=== PATIENT | female | born 1940 | race Caucasian/White ===

== ENCOUNTER → 2017-05-02 | Outpatient (CLI) | payer OTHER | LOC: FIMAGING 09:01 | PROVIDERS: ATTEND Internal Medicine | DX: Z12.31 Encounter for screening mammogram for malignant neoplasm of breast (principal) | CPT/HCPCS: G0202 ==

== ENCOUNTER → 2017-05-23 | Outpatient (CLI) | payer OTHER | LOC: FIMAGING 10:07 | PROVIDERS: ATTEND Internal Medicine | DX: R92.8 Other abnormal and inconclusive findings on diagnostic imaging of breast (principal) ==

== ENCOUNTER → 2017-05-31 | Outpatient (CLI) | payer OTHER ==
[~2017-05-31] MED LIST: GADOBUTROL 10 ML VIAL IVP ONE
== END ==
LOC: FIMAGING 13:09
PROVIDERS: ATTEND Internal Medicine
DX: Z12.39 Encounter for other screening for malignant neoplasm of breast (principal); N64.59 Other signs and symptoms in breast
CPT/HCPCS: 0159T; A9585; C8908

== ENCOUNTER → 2017-06-19 | Outpatient (CLI) | payer OTHER | LOC: BHFA 10:00 | PROVIDERS: ATTEND Internal Medicine Cardiovascular Disease | DX: I48.91 Unspecified atrial fibrillation (principal) ==

== ENCOUNTER → 2017-11-15 | Outpatient (CLI) | payer OTHER | LOC: FIMAGING 10:05 | PROVIDERS: ATTEND Internal Medicine | DX: N63.13 Unspecified lump in the right breast, lower outer quadrant (principal) ==

== ENCOUNTER 2018-04-27 10:49 | Observation (INO) | payer OTHER ==
--- NOTE | 2018-04-27 11:13 | CPEKG ---
Test Reason : OPEN Blood Pressure : / mmHG Vent. Rate : 065 BPM Atrial Rate : 068 BPM P-R Int : 049 ms QRS Dur : 083 ms QT Int : 383 ms P-R-T Axes : 000 066 169 degrees QTc Int : 399 ms Atrial fibrillation LVH with secondary repolarization abnormality Confirmed by Ricco Wells ([id number]) on 04/27/2018 11:12:59 AM Referred By: Confirmed By:Ricco Wells
--- NOTE | 2018-04-27 11:15 | EDPHY ---
H & P Time Seen by Provider: 04/27/18 10:58 HPI/ROS: Chief complaint. Syncope HPI. Patient is a 77-year-old female history atrial fibrillation on Xarelto. She was riding in the car with her this morning and developed tightness in her chest and some nausea and diaphoresis. She then became unresponsive for 10-15 seconds. She had no sense that she felt like she could pass out. She has had previous syncope about 3 years ago and broke her ankle. She subsequently had pulmonary embolus. She has had no fever or cough. She continues to be nauseated but does not have any chest tightness. She tells me she has never had chest tightness like this before. No unusual leg pain or swelling. Nausea but no vomiting and no abdominal pain ROS 10 systems were reviewed and negative with the exception of the elements mentioned in the history of present illness Past Medical/Surgical History: Atrial fibrillation Meniere's disease, hypertension, hyperglycemia, pulmonary embolus Social History: , nonsmoker, no alcohol Smoking Status: Never smoked Physical Exam: General Appearance: Alert well-developed female mild distress vital signs significant for blood pressure 181/111 Eyes: Pupils equal and round no pallor or injection. ENT, Mouth: Mucous membranes are moist. Respiratory: There are no retractions, lungs are clear to auscultation. Cardiovascular: Irregularly irregular rate and rhythm Gastrointestinal: Abdomen is soft and nontender, no masses, bowel sounds normal. Neurological: Awake and alert, sensory and motor exams grossly normal. Skin: Warm and dry, no rashes. Musculoskeletal: Neck is supple nontender. Extremities symmetrical, full range of motion. Psychiatric: Patient is oriented X 3, there is no agitation. Constitutional: Initial Vital Signs Temperature (C) 36.6 C 04/27/18 10:52 Heart Rate 70 04/27/18 10:52 Respiratory Rate 18 04/27/18 10:52 Blood Pressure 181/111 H 04/27/18 10:52 O2 Sat (%) 95 04/27/18 10:52 O2 Delivery Mode Room Air Allergies/Adverse Reactions: No Known Allergies Allergy (Verified 04/27/18 10:50) Home Medications: Medication Instructions Recorded Ascorbic Acid [Vitamin C 500 mg 1,000 mg PO DAILY 11/29/15 (*)] Carboxymethylcellulose 1% [Refresh 1 drop EACHEYE BID PRN 11/29/15 Celluvisc (*)] Cholecalciferol Vit D3 [Vitamin D3 2,000 units PO DAILY 11/29/15 2000 units] Levothyroxine [Synthroid 75 mcg 75 mcg PO DAILY06 11/29/15 (*)] Magnesium Oxide [Magnesium Oxide 500 mg PO DAILY 11/29/15 500 mg] Multivitamins [Multivitamin (*)] 1 each PO DAILY 11/29/15 Nebivolol HCl [Bystolic 5 mg (*)] 5 mg PO HS 11/29/15 Katy-3 Fatty Acids [Fish Oil 1000 1,000 mg PO DAILY 11/29/15 mg (*)] Sennosides/Docusate Sodium 1 each PO DAILY 11/29/15 [Senna-Docusate Sodium Tablet] Rivaroxaban [Xarelto 15mg (*)] 15 mg PO BIDMEAL #0 tab 12/02/15 Medical Decision Making - Diagnostics EKG Interpretation: EKG interpreted by me shows atrial fibrillation. Normal axis. QRS is normal. There is no significant ST elevation. There is lateral ST depression. Ventricular response is 65 Imaging Results: Imaging Impressions Chest X-Ray 04/27/18 11:26 Impression: Mild congestive heart failure. Findings and recommendations discussed with Emergency Department physician, Dr. Ricco Wells at 1202 hours on April 27, 2018. Final report concurs with initial preliminary interpretation. Chest x-ray interpreted by me and discussed with Radiology shows mild CHF. Tortuous aorta but no evidence for aneurysm Procedures: IV normal saline, monitor. Zofran for nausea ED Course/Re-evaluation: Re-evaluation patient is stable. LEs nausea after the Zofran. Patient, her , and I discussed imaging lab an EKG findings. We discussed treatment plan including recommendation for admission. They expressed understanding and agreement I consulted discussed the case with Dr. Peña who agrees to the admission and will see the patient shortly. Differential Diagnosis: Syncope in a patient without prodrome who has atrial fibrillation. New evidence of congestive heart failure. Suspicion for acute coronary syndrome as the patient did have some chest discomfort, diaphoresis, nausea. No evidence for pulmonary embolus - Data Points Laboratory Results: Laboratory Results 04/27/18 11:00 04/27/18 11:00 04/27/18 04/27/18 04/27/18 11:38 11:00 11:00 WBC RBC Hgb Hct MCV MCH MCHC RDW Plt Count MPV Neut % (Auto) Lymph % (Auto) Grady % (Auto) Eos % (Auto) Baso % (Auto) Nucleat RBC Rel Count Absolute Neuts (auto) Absolute Lymphs (auto) Absolute Monos (auto) Absolute Eos (auto) Absolute Basos (auto) Absolute Nucleated RBC Immature Gran % Immature Gran # PT 15.9 SEC H SEC (12.0-15.0) INR 1.25 H (0.83-1.16) APTT 33.5 SEC SEC (23.0-38.0) D-Dimer < 0.27 ug/mLFEU ug/mLFEU (0.00-0.50) Sodium 136 mEq/L mEq/L (135-145) Potassium 4.8 mEq/L mEq/L (3.3-5.0) Chloride 101 mEq/L mEq/L (97-110) Carbon Dioxide 24 mEq/l mEq/l (22-31) Anion Gap 11 mEq/L mEq/L (8-16) BUN 26 mg/dL H mg/dL (7-23) Creatinine 0.8 mg/dL mg/dL (0.6-1.0) Estimated GFR > 60 Glucose 94 mg/dL mg/dL (70-100) Calcium 10.7 mg/dL H mg/dL (8.5-10.4) Phosphorus 3.2 mg/dL mg/dL (2.5-4.5) POC Troponin I 0.04 ng/mL ng/mL (0.00-0.08) NT-Pro-B Natriuret Pep 3390 pg/mL H pg/mL (0-450) 04/27/18 11:00 WBC 7.56 10^3/uL 10^3/uL (3.80-9.50) RBC 4.95 10^6/uL 10^6/uL (4.18-5.33) Hgb 15.5 g/dL g/dL (12.6-16.3) Hct 46.3 % % (38.0-47.0) MCV 93.5 fL fL (81.5-99.8) MCH 31.3 pg pg (27.9-34.1) MCHC 33.5 g/dL g/dL (32.4-36.7) RDW 13.9 % % (11.5-15.2) Plt Count 244 10^3/uL 10^3/uL (150-400) MPV 10.0 fL fL (8.7-11.7) Neut % (Auto) 52.0 % % (39.3-74.2) Lymph % (Auto) 37.3 % % (15.0-45.0) Grady % (Auto) 9.4 % % (4.5-13.0) Eos % (Auto) 0.4 % L % (0.6-7.6) Baso % (Auto) 0.5 % % (0.3-1.7) Nucleat RBC Rel Count 0.0 % % (0.0-0.2) Absolute Neuts (auto) 3.93 10^3/uL 10^3/uL (1.70-6.50) Absolute Lymphs (auto) 2.82 10^3/uL 10^3/uL (1.00-3.00) Absolute Monos (auto) 0.71 10^3/uL 10^3/uL (0.30-0.80) Absolute Eos (auto) 0.03 10^3/uL 10^3/uL (0.03-0.40) Absolute Basos (auto) 0.04 10^3/uL 10^3/uL (0.02-0.10) Absolute Nucleated RBC 0.00 10^3/uL 10^3/uL (0-0.01) Immature Gran % 0.4 % % (0.0-1.1) Immature Gran # 0.03 10^3/uL 10^3/uL (0.00-0.10) PT INR APTT D-Dimer Sodium Potassium Chloride Carbon Dioxide Anion Gap BUN Creatinine Estimated GFR Glucose Calcium Phosphorus POC Troponin I NT-Pro-B Natriuret Pep Medications Given: Discontinued Medications Sodium Chloride (Ns) 500 mls @ 0 mls/hr IV EDNOW ONE; Wide Open PRN Reason: Protocol Stop: 04/27/18 11:27 Last Admin: 04/27/18 11:40 Dose: 500 mls Ondansetron HCl (Zofran) 4 mg IVP EDNOW ONE Stop: 04/27/18 11:28 Last Admin: 04/27/18 11:40 Dose: 4 mg Point of Care Test Results: Chemistry 04/27/18 11:38 POC Troponin I 0.04 ng/mL ng/mL (0.00-0.08) Departure - Departure Disposition: [facility] Inpatient Acute Clinical Impression: Atrial fibrillation Qualifiers: Atrial fibrillation type: unspecified Qualified Code(s): I48.91 - Unspecified atrial fibrillation Congestive heart failure Qualifiers: Heart failure type: systolic Heart failure chronicity: acute Qualified Code(s) : I50.21 - Acute systolic (congestive) heart failure Syncope Qualifiers: Syncope type: unspecified Qualified Code(s): R55 - Syncope and collapse Condition: Fair
[2018-04-27] MEDS ORDERED: NS 500 ML IV ONE (11:26)
[2018-04-27] MEDS ORDERED: ONDANSETRON 4 MG/2 ML VIAL IVP ONE (11:27)
[2018-04-27 11:35] LABS: PLATELET COUNT 244 10^3/uL (150-400)
[2018-04-27 11:47] LABS: INR 1.25 (0.83-1.16); PROTIME(PATIENT) 15.9 SEC (12.0-15.0)
[2018-04-27] MEDS ORDERED: ONDANSETRON 4 MG/2 ML VIAL IVP PRN (12:30)
[2018-04-27] MEDS ORDERED: ONDANSETRON DISINTEGRATING 4 MG TAB PO PRN (12:30)
[2018-04-27] MEDS ORDERED: ACETAMINOPHEN 325 MG TAB PO PRN (12:30)
[2018-04-27] MEDS ORDERED: FUROSEMIDE 20 MG/2 ML VIAL IVP ONE (12:35)
[2018-04-27] MEDS ORDERED: CARBOXYMETHYLCELLULOSE 1% 0.4 ML DROPERETTE EACHEYE PRN (14:03)
[2018-04-27] MEDS ORDERED: traZODone 50 MG TAB PO PRN (14:03)
--- NOTE | 2018-04-27 14:34 | SOAPPROG ---
SOAP Progress Note Assessment/Plan: Assessment: 77 yo delightful female comes in today after spouse was driving w/ her and she became unresponsive for 10-15 sec, sweaty, nauseated, no cp. She has a h/o intermittent a fib on Bystolic and Xarelto, puly htn, dvt/PE after ankle fx, hypothyroidism, OA, reports she had a recent heart scan which was minimally positive. In the ER her labs were found to show +BNP of 3400, no prior data points for this, cxr w/ minimal evidence of CHF, no infiltrates/effusion, ekg w / a fib, trop x 1 neg, d dimer ok (and on anticoag). Pt admitted for further w/ u of syncopal episode w/ differential to include arrhythmia induced, acs, unlikely postural/orthostatic as she was riding in car, not likely infectious as she has been in usual state of health w/o any recent illnesses, no h/o sz disorder/neuro etiology. -Admit to tele, serial trop, echo, cont Xarelto, will consult cardiology as this is now a second event (first 3 years ago) - seems to be going in and out of afib and she is not aware she is in it currently - ? cardioversion vs rhythm med consideration, assess what she does on tele, ? longer term eval of rhythm vs ? pacer, will consult cardiology and call Dr Felicia Louis. -Hypothryoid - will check TSH and make sure not hyperthyroid and contributing -HTN - bp elev currently - usually well controlled on Bystolic 5 mg qhs (and rate control) - spoke w/ Dr Louis - will hold bb to better assess rhythm/ sinus node/pause/rate - will place on norvasc, has h/o cough on gisela i. -h/o vertigo/possible Meniere's/tinnitus - stable, undergoing outpt w/u -[facility] - wears cpap nightly -h/o DVT/PE after ankle fx - on Xarelto see above. -dvt proph- Xarelto Plan: 04/27/18 14:13 Subjective: doing better, was scary, now w/ appetite and no further nausea Objective: Vital Signs Temp Pulse Resp BP Pulse Ox 36.6 C 64 14 174/110 H 93 04/27/18 10:52 04/27/18 12:43 04/27/18 12:43 04/27/18 12:43 04/27/18 12:43 PT 15.9 SEC (12.0-15.0) H 04/27/18 11:00 INR 1.25 (0.83-1.16) H 04/27/18 11:00 GEN: pleasant female w/ spouse and dtr and one son in room HEENT: perr, eomi Neck: soft, supple Chest: cta b CV: irreg irreg Abd: soft nt nd nl bs Ext : no edema Neuro: alert and oriented x 4 Psych: a little stressed from incident but better ICD10 Worksheet Patient Problems: Problems Problem Status Onset Pulmonary embolism and infarction Acute Atrial fibrillation and flutter Acute Atrial fibrillation Acute Congestive heart failure Acute Syncope Acute
--- NOTE | 2018-04-27 15:49 | GHP ---
DATE OF ADMISSION: 04/27/2018 CHIEF COMPLAINT: Syncope. HPI: Patient is a delightful 77-year-old female with a history of intermittent atrial fibrillation, hypertension, history of DVT and PE, who was driving with her spouse today as a passenger, when he no ticed that she became unresponsive for about 10-15 seconds. When she started responding again, she w as a little bit pale, diaphoretic and nauseated. Denies any chest pain at that time. She started fe elielizabeth better and he called and was directed to go to the ER for further workup. She had 1 event dory lar to this about 3 years ago in a situation where she had taken Benadryl and was dehydrated and trip ped unfortunately resulting in a fractured ankle with a DVT and PE at that time. She reports that miguel santos has been in her usual state of health. No recent illnesses, nausea, vomiting, diarrhea, fevers, ch ills. Nothing abnormal. She had consumed her regular medications, had fluids and food this morning, was feeling fine until this occurred in the car. In the ER, she was found, as far as blood work, to have an elevated BNP of around 3400 with no prior data points for comparison. A chest x-ray done, which showed minimal evidence of CHF with no infiltr ates or effusion. She had an EKG done which showed atrial fibrillation. She had initial troponin ne gative. D-dimer okay. Rest of her labs normal. No electrolyte abnormalities. She was feeling much better, although anxious from the event. She has no history of seizure disorder, is not started on any new medications or anything out of the ordinary except for stopping her sildenafil fairly recentl y with a question of was it contributing to muscle aches, and she has not noticed any difference from that, and she was being treated for pulmonary hypertension with this medication with her last echo i n May of 2017, and also she did have a Holter monitor done at that time as well, trying to asses s her atrial fibrillation. PAST MEDICAL HISTORY: Obstructive sleep apnea for which she wears CPAP every night, hypertension con trolled with Bystolic 5 mg a day, vertigo, some hearing loss and possible Meniere's, hyperlipidemia, hypothyroidism, mitral valve prolapse, osteopenia, intermittent atrial fibrillation, osteoarthritis, history of PE and DVT. MEDICATIONS: Include Synthroid 75 mcg daily, fish oil 1000 daily, Bystolic 5 mg daily, although in 1 record, she had been up to 10 mg; Xarelto 20 mg daily, CoQ10 2 capsules daily, magnesium 500 mg 2 da mitch, Tylenol p.r.n., vitamin D 2000 once a day, and multivitamin once a day. SURGICAL HISTORY: Includes right ankle surgery in 2015, hospitalization in 2015 with ankle surgery a nd pulmonary embolus. SOCIAL HISTORY: She is , has 3 sons and 1 daughter. She is a nonsmoker. Has an occasional a lcohol beverage, but not very often. Has 1-2 cups of coffee per day. Exercise is somewhat limited d ue to her osteoarthritis. FAMILY HISTORY: Her dad young secondary to motor vehicle accident. Mom at 88 from a strok e and Alzheimer's. ALLERGIES: PINKY inhibitor for cough and Flexeril for drowsiness. REVIEW OF SYSTEMS: GENERAL: She is in her usual state of health. Denies any recent illnesses, reece ge in appetite, anything abnormal. HEENT: Hearing: Positive for some ongoing hearing loss and vert igo and tinnitus. Vision: She has been having some change in her vision, for which her ophthalmolog ist is trying to adjust her glasses. Oropharyngeal: Denies any sore throats or congestion. RESPIRA TORY: Denies any cough, shortness of breath, or wheezing. CARDIOVASCULAR: Intermittent palpitation s, which she seems she can feel when she is in atrial fibrillation. However, she cannot appreciate t hat she is in it currently. GI: Denies any nausea, vomiting, diarrhea, or constipation. MUSCULOSKE LETAL: Positive for some soreness of both legs and 1 knee, which she is being treated at [facility] and may consider a total knee replacement. EXTREMITIES: Denies any swelling to her lower legs or an kles. NEUROLOGIC: Denies any history of seizure disorders or memory loss or any other concerns. No weakness. PSYCHIATRIC: A little bit anxious from the event today, but denies any acute problematic mood issues. PHYSICAL EXAM: VITAL SIGNS: Blood pressure 174/110, heart rate 65, respiration rate 14. She is 93% to 95% on room air. Afebrile at 36.6. GENERAL: Pleasant female, alert and oriented x4. Spouse at bedside and daughter and 1 son present as well. HEAD: NC/NT. EYES: Pupils equal, round. EOMI. ENT: Mucous membranes moist. No erythema of oropharynx. NECK: Soft and supple. No thyromegaly ap preciated. RESPIRATORY: Clear to auscultation bilaterally. No wheezes, rhonchi. CARDIOVASCULAR: Irregularly irregular. GI: Abdomen soft, nontender, nondistended. Normal bowel sounds. NEUROLOGIC : She is alert and oriented x4. Denies any weakness. Sensorimotor exam is normal. Cranial nerves 2 through 12 grossly intact. MUSCULOSKELETAL: Has some decreased range of motion in 1 shoulder and 1 knee from osteoarthritis. SKIN: Warm and dry. No rashes. EXTREMITIES: No clubbing, cyanosis, o r edema. PSYCHIATRIC: Mild anxiety over the event, but no abnormalities otherwise. Alert and orien brianna and appropriate. Good eye contact. ASSESSMENT AND PLAN: A 77-year-old pleasant female with a 10-15 second syncopal event in the passeng er seat of a car this morning with no antecedent causal factors appreciated or noted. Has been in [facility] state of health. Does have intermittent atrial fibrillation. Has minimal coronary atheroscleros is on heart scan. Is on Xarelto with a history of atrial fibrillation and also history of deep vein thrombosis/pulmonary embolism in the ER with a mild elevation of her BNP, negative 1st troponin. EKG showing atrial fibrillation. Etiology and differential to include arrhythmia-induced syncopal event , acute coronary syndrome, possibly postural orthostatic, but less likely as she was riding in the [employer] and had intake of orals earlier in the day, not likely infectious as she has been in usual state of health. No history of seizure disorder, indication for neurologic etiology. PLAN: 1. Will be to admit her to telemetry. Follow serial troponins. I have ordered an echocardiogram. We will continue on Xarelto. At this point, we will also call Cardiology for input as this seems to be her 2nd event, with the first 3 years ago and she is not always aware when she goes in or out of a trial fibrillation. Question whether she could be considered for cardioversion versus alteration in rhythm medications versus possible pacer candidate versus longer-term evaluation of her rhythm. We w ill consult Cardiology, Dr. Felicia Louis, and per discussion with Dr. Louis, we will take her off Bystol to have a better assessment of her rhythm, what her sinus node activity is, and possible pauses co ntributing to the above. 2. Hypothyroidism. We will check TSH and make sure that she is appropriately controlled and hypothy roidism is not contributing to current situation. 3. History of hypertension. She is usually well controlled on Bystolic. Per discussion above, with wanting to see truly what she is doing on telemetry, we will hold the Bystolic and place her on Norv asc. Of note, she has a history of a cough to PINKY inhibitors. 4. History of vertigo, possible Meniere's and tinnitus, stable. She is undergoing further workup as an outpatient on this. This is not a new event. 5. History of obstructive sleep apnea. She wears CPAP nightly with excellent compliance at home. 6. History of DVT/PE after ankle fracture with a syncopal episode prior like above. Continue on Xar elto. 7. DVT prophylaxis. Continue Xarelto. /[id number]/MODL
--- NOTE | 2018-04-27 16:55 | ECHO ---
[email or web address] [address] Main: [phone] Fax: Transthoracic Echocardiogram Name: BRYCE HERNDON MR#: [id number] Study Date: 04/27/2018 Study Time: 03:15 PM Date of : 1940 Age: 77 year(s) Height: 177.8 cm (70 in.) Weight: 73.48 kg (162 lb.) BSA: 1.91 m2 Gender: Female Examination: Echo Indication: a fib, Cardiac: syncope, h/o puly htn, new elev in BNP Image Quality: Adequate Contrast: Requested by: Danae Peña BP: 154 mmHg/103 mmHg Heart Rate: Rhythm: Indication: a fib, Cardiac: syncope, h/o puly htn, new elev in BNP Procedure Staff Time Study Technologist: Echo Rahman [facility] Reading Physician: Felicia Louis MD Requesting Provider: Danae Peña Conclusions: Normal size left ventricle. Mild concentric LV hypertrophy. Normal global systolic LV function. The ejection fraction is estimated to be 55-60 %. No regional wall motion abnormality. Normal size right ventricle. Normal RV function. The left atrium is moderately dilated. The right atrium is severely dilated. Mild mitral valve regurgitation is present. The pulmonary artery pressure is moderately increased. Moderate to severe tricuspid valve regurgitation. Trivial pericardial effusion. Compared with 06/19/2017 TR may have progressed slightly. LVH now noted. Measurements: Chambers Valvular Assessment AV/MV Valvular Assessment TV/PV Normal Normal Normal Name Value Range Name Value Range Name Value Range Ao Roya (2D): 3.0 cm (1.4 cm-2.6 AV Vmax: 1.36 m/s (1 m/s-1.7 TR Vmax: 3.72 mm/s ( - ) cm) m/s) TR PGmax: 55 mmHg ( - ) IVSd (2D): 1.2 cm (0.6 cm-1.1 AV maxP mmHg ( - ) syst. PAP: 60 mmHg ( - ) cm) AV meanP mmHg ( - ) PV Vmax: 0.75 m/s (0.6 m/s-0.9 LVDd (2D): 4.2 cm (3.9 cm-5.3 DMITRY (VTI): 2.6 cm ( - ) m/s) cm) MV E Vmax: 0.85 m/s ( - ) PV PGmax: 2 mmHg ( - ) LVDs (2D): 2.7 cm (2.1 cm-4 MV A Vmax: 0.30 m/s ( - ) cm) MV E/A: 2.83 ( - ) LVPWd (2D): 1.1 cm ( - ) MV PHT: 0.051 s ( - ) LVOTd 2.0 cm 2.0 cm mm MVA (PHT): 4.3 s ( - ) Patient: BRYCE HERNDON Study Date: 04/27/2018 Page 1 of 2 03:15 PM LVEF (BP): 52 % (>=55 %) EF Range: 55-60 % RVDd(2D): 3.4 cm (1.9 cm-3.8 cmmm) Continued Measurements: Chambers Valvular Assessment AV/MV Valvular Assessment TV/PV Name Value Name Value Name Value LADs: 4.0 cm MV DecTime: 201 m/s CVP (est.): 5 mmHg LADs Lon.8 cm MV E' Septal: 0.07 m/s LA Area: 26.8 cm2 MV E/E' Septal: 11.60 LA Volume: 84 ml MV E/E' Lateral: 7.40 LA Volume Index: 44.0 ml/m2 RA Area: 24.8 cm2 Additional Vessels Name Value Ao Ascendin.9 cm Inferior Vena Cava: 1.2 cm Findings: Left Ventricle: Normal size left ventricle. Mild concentric LV hypertrophy. Normal global systolic LV function. The ejection fraction is estimated to be 55-60 %. No regional wall motion abnormality. Right Ventricle: Normal size right ventricle. Normal RV function. Left Atrium: The left atrium is moderately dilated. Right Atrium: The right atrium is severely dilated. Mitral Valve: Mild mitral annular calcification. Mild mitral valve regurgitation is present. Aortic Valve: The aortic valve is tri-leaflet. Trivial aortic valve regurgitation. No aortic valve stenosis is present. Tricuspid Valve: The pulmonary artery pressure is moderately increased. Right ventricular systolic pressure measures 60mmHg. Moderate to severe tricuspid valve regurgitation. Pulmonic Valve: The pulmonic valve is normal in appearance and function. Aorta: The aorta is normal. Normal size aortic root measuring 3.0 cm. Normal size ascending aorta measuring 2.9 cm. IVC: The IVC is normal sized. Pericardium: Trivial pericardial effusion. There is pericardial fat. Exam Comments: (No Signature Object) Patient: BRYCE HERNDON Study Date: 04/27/2018 Page 2 of 2 03:15 PM [id number]
--- NOTE | 2018-04-27 20:35 | GCON ---
CARDIOLOGY CONSULT DATE OF CONSULTATION: 04/27/2018 CHIEF COMPLAINT: Syncope. HISTORY OF PRESENT ILLNESS: We were asked by Dr. Peña to visit with the patient. The patient is a very pleasant 77-year-old female with a history of permanent atrial fibrillation, pulmonary embolis m in 2016, on chronic Xarelto therapy, systemic hypertension. Today, she was the passenger in a car, and her was driving. They were having a conversation. He looked over because she was not answering his question, and he reports that she was unresponsive . He thinks this lasted for about 10 seconds. She did not lose body position. No tongue biting or incontinence. The patient describes suddenly feeling chest pressure and nausea as well as diaphoresi s. She did not notice palpitations. When she came to, she still felt nauseated, but had resolution with mild chest pain. Upon my evaluation, she is chest pain free without nausea or diaphoresis. She reports normal oral intake over the past few days. No fevers or chills. No vomiting or diarrhea . No bleeding problems on Xarelto. We reviewed the fact that in 2008 she did have a syncopal episod e. This occurred while she was getting a manicure and letting her nails dry. She was seated. She h ad taken Benadryl and some other cold medication, and she lost consciousness briefly. Then again in 2016, she had gotten up quickly and walked across the kitchen. She turned and caught her foot under a chair, fainted and broke her ankle in the process. A month or so after this is when she developed her DVT/PE. REVIEW OF SYSTEMS: A full 10-point review of systems performed, is negative except that which is out lined in the history of present illness. ALLERGIES: PINKY inhibitor causes cough. PAST MEDICAL HISTORY: 1. Permanent atrial fibrillation. She has had 2 Holter monitors over the past year, both showing at rial fibrillation with controlled ventricular response. 2. Systemic hypertension. 3. Pulmonary hypertension. 4. History of pulmonary emboli. 5. Treated sleep apnea. 6. History of ankle fracture with surgical repair. 7. Hypothyroidism. 8. Meniere's. 9. Hyperlipidemia. 10. Osteopenia. 11. Osteoarthritis. 12. Valvular heart disease with mild mitral regurgitation and qazskydu-to-jfvafi tricuspid regurgita tion. OUTPATIENT MEDICATIONS: Bystolic 5 mg daily, Xarelto 20 mg daily, vitamin C, vitamin D3, Synthroid 7 5 mcg daily, magnesium oxide, multivitamin, fish oil, and trazodone. SOCIAL HISTORY: The patient is . Her is at the bedside. She drinks 1 to 1-1/2 glass es of wine nightly, which is her usual habit. No cigarettes. She is retired. FAMILY HISTORY: Not applicable to this current case. PHYSICAL EXAM: VITAL SIGNS: Blood pressure 154/103. It was 181/111 upon admission to the ER. She is not frankly orthostatic by vital signs, but does have a slightly lower blood pressure of 129/99 wi th standing compared to 148/92 with sitting and 138/71 with supine testing. Heart rate is in the 60s to 70s, 92% on room air. Respiratory rate is 14. GENERAL: Well-appearing older female in no acute distress. HEENT: Sclerae clear and free of jaundice. Mucous membranes are moist. CARDIOVASCULAR: Irregularly irregular rhythm. Soft holosystolic murmur at the left lower sternal border. No S3. LUNGS: Clear bilaterally without wheeze, rhonchi, or rales. ABDOMEN: Soft, nontender, nondistended . EXTREMITIES: Warm and well perfused without cyanosis, clubbing, or edema. NEURO: Alert and orie nted x3 without gross focal neurological deficits. Appropriate mood and affect. LABORATORY DATA: CBC is normal. D-dimer negative. INR 1.25, which likely reflects her Xarelto ther apy. Basic metabolic panel is normal except for slightly elevated BUN at 26, calcium is 10.7, magnes ium 2.1. Troponin negative x3. BNP 3390. This was elevated in 2016 as well in the setting of her P E at 3900. TSH is normal. EKG reviewed by me and compared to 2016 shows AFib with controlled ventricular response. LVH with as sociated repolarization abnormalities. Normal QT interval. Echocardiogram reviewed by me and compar ed to previous studies, normal LV size and systolic function. Mild concentric LVH. No ischemic wall motion abnormalities. RV is normal in size and systolic function. Moderate left atrial and severe right atrial dilation. Mild mitral regurgitation. Pulmonary artery pressure is elevated at 60 mmHg. Rkxgcvcc-el-qoacth tricuspid regurgitation. Compared with 05/2017, tricuspid regurgitation is slig htly worse. PA pressure is about the same. Chest x-ray reviewed by me: Mild congestive heart failure. Holter monitor x2 done in our office, both show AFib with controlled ventricular response, an average heart rate of 67 to 75. Only a single pause of 2.5 seconds. No significant ventricular arrhythmia. ASSESSMENT AND PLAN: A 77-year-old female with permanent atrial fibrillation, systemic hypertension, pulmonary hypertension, admitted with a brief episode of syncope that occurred while she was seated. She did have a brief prodrome of chest discomfort and nausea as well as diaphoresis. 1. Syncope: Symptoms sound somewhat consistent with vasovagal, but there was no clear vagal trigger , i.e., she did not need to use the restroom, she had not just eaten. Acute coronary syndrome trigge ring syncope seems unlikely given negative troponins and resolution of chest pain. EKG is stable wit hout new ischemic changes compared to 2017. Agree with cycling troponins and monitoring on telemetry . Other possibilities include a bradycardic or tachycardic arrhythmia. Her Bystolic will be held in the event that she is having slow ventricular response and atrial fibrillation or intermittent conve rsion to sinus rhythm with offset pause. I think the latter is less likely given the fact that she h as been in atrial fibrillation on serial past evaluations and her atria are quite enlarged, indicatin g that she likely has permanent atrial fibrillation. I do think that a [employer] confirm implantable monitor would be appropriate for long-term ambulatory monitoring. [facility] the next week or so. I would like her to hold her Xarelto for 1 day prior to thi s procedure. She will consider this. Also, I think it would be prudent for her to have an outpatien t Lexiscan nuclear stress test for further coronary risk stratification, although as mentioned, I do not think that her current symptom presentation is related to acute coronary syndrome. 2. Pulmonary hypertension: Pulmonary artery pressures in the 60s on serial echocardiograms. It is possible that she had a transient decline in her systemic hypertension, which would have caused synco pe in the setting of pulmonary hypertension. It is likely that her pulmonary hypertension is related to her past pulmonary embolism and her sleep apnea. She should remain well hydrated and avoid syste tiarra hypotension. She has been started on Norvasc for her hypertension, and her Bystolic has been hel d. 3. Hypertension: Med changes as detailed per #2. 4. History of pulmonary embolism: She is on Xarelto. D-dimer is negative here. Thank you for allowing us to participate in the patient's care. We will follow with you. /[id number]/MODL
[2018-04-27] MEDS ORDERED: RIVAROXABAN 20 MG TAB PO SCH (21:00)
[2018-04-27] MEDS ORDERED: NEBIVOLOL HCL 5 MG TAB PO SCH (21:00)
[2018-04-27] MEDS: FLUOROMETHOLONE 5 ML OPHT.BTL EACHEYE SCH (21:18)
[2018-04-28] MEDS ORDERED: LEVOTHYROXINE 75 MCG TAB PO SCH (06:00)
[2018-04-28 07:32] VITALS: BP 148/90
[2018-04-28] MEDS: FLUOROMETHOLONE 5 ML OPHT.BTL EACHEYE SCH (08:33)
[2018-04-28] MEDS ORDERED: ASCORBIC ACID 500 MG TAB PO SCH (09:00)
[2018-04-28] MEDS ORDERED: CHOLECALCIFEROL VIT D3 1,000 UNITS TAB PO SCH (09:00)
[2018-04-28] MEDS ORDERED: MAGNESIUM OXIDE 400 MG TAB PO SCH (09:00)
[2018-04-28] MEDS ORDERED: OMEGA-3 FATTY ACIDS 1,000 MG CAP PO SCH (09:00)
[2018-04-28] MEDS ORDERED: MULTIVITAMINS 1 EACH TAB PO SCH (09:00)
--- NOTE | 2018-04-28 09:27 | PDCARPN ---
Cardiology Progress Note Assessment/Plan: Assessment/plan: 77-year-old female with permanent atrial fibrillation, hypertension, pulmonary hypertension. History of pulmonary embolism and treated sleep apnea. Admitted on April 27 with a 10 sec episode of syncope that occurred while seated. Troponins negative. No recurrent syncope. No significant events on telemetry. Bystolic has been held and low-dose Norvasc has been started for her hypertension. 1. Syncope: Vasovagal versus arrhythmic versus hemodynamic in the setting of her pulmonary hypertension. Doubt acute coronary syndrome. No clear indication for pacemaker. Left ventricular ejection fraction is normal. Would continue to hold Bystolic and use Norvasc for her blood pressure. Recommend implant of a [employer] CONFIRM monitor that will provide long-term ambulatory rhythm data for 3 years. This can be scheduled as an outpatient. Also recommend outpatient Lexiscan nuclear stress test for further risk stratification. She should hold her Xarelto for 24 hr prior to the procedure. Remain well hydrated. 2. Atrial fibrillation: She is rate controlled here off of Bystolic. Follow as an outpatient. Monitor as detailed above. Continue Xarelto as her CHADS2 Vasc score is 4. 3. Hypertension: She was hypertensive on admission. This improved with low- dose Norvasc. Norvasc may need to be up titrated but will defer to the outpatient setting. 4. Pulmonary hypertension: Likely related to her history of pulmonary embolism and sleep apnea. This has been demonstrated on serial echoes. No evidence of right heart failure. 5. Valvular heart disease: Mild mitral regurgitation and moderate to severe tricuspid regurgitation. This should be followed on an annual basis. 6. Hypothyroidism: TSH this admission is normal. 7. Sleep apnea: She is compliant with CPAP. It would be important to demonstrate that she is completely treated as under treated sleep apnea could be contributing to her pulmonary hypertension. She appears stable for discharge from a cardiovascular standpoint with outpatient follow-up as detailed above. 04/28/18 09:50 Subjective: Feels well. No recurrent presyncope syncope. No chest pressure, nausea or diaphoresis. She had a normal bowel movement this morning. Reviewed/Discussed With: family Objective: Vital Signs (8 Hrs) Temp Pulse Resp BP Pulse Ox 04/28/18 07:29 35.8 C L 65 20 148/90 H 92 04/28/18 04:00 36.7 C 85 16 154/74 H 98 Intake/Output (24 Hrs) 04/27/18 04/28/18 04/29/18 05:59 05:59 05:59 Intake Total 1400 Balance 1400 Intake: Oral (ml) 1400 Other: Weight 68.039 kg Intake Quantity Yes Sufficient Output Comment Toilet Prior to arrival to hospital Number of Voids Toilet 5 Number of Stools Toilet 1 No acute distress. JVP less than 10. Irregular regular rhythm with soft early systolic murmur at the left lower sternal border. No S3. Lungs clear to auscultation bilaterally without wheezes rhonchi rales No lower extremity edema. 2+ dorsalis pedis pulses bilaterally Alert and oriented x3 without gross focal neurologic deficits. Appropriate mood and affect. Result Diagrams: 04/28/18 04:58 04/28/18 08:24 Cardiac Labs: Cardiac Lab Results (72 Hrs) 04/27/18 23:32 Troponin I < 0.012 Telemetry: Atrial fibrillation with controlled ventricular response. Some bradycardic response at night. Occasional PVCs. Echocardiogram: Reviewed: Normal LV size and systolic function without regional wall motion abnormality. Biatrial dilation. Mild mitral regurgitation. Moderate to severe tricuspid regurgitation with estimated pulmonary artery pressure of 60. ICD10 Worksheet Patient Problems: Problems Problem Status Onset Pulmonary embolism and infarction Acute Atrial fibrillation and flutter Acute Atrial fibrillation Acute Congestive heart failure Acute Syncope Acute
--- NOTE | 2018-04-28 10:02 | ASMTCMCOM ---
CM Note CM Note Notes: Reviewed chart, pt admitted for a short unresponsiveness episode in the car as passenger with her . No needs identified, anticipate she will dc home w/support of her when medically stable. CM available for any changes. DC Plan: Independent Date Signed: 04/28/2018 10:02 AM Electronically Signed By:Cari Trinidad RN
[2018-04-28] MEDS ORDERED: amLODIPine BESYLATE 5 MG TAB PO SCH (10:40)
--- NOTE | 2018-04-28 10:52 | SOAPPROG ---
SOAP Progress Note Assessment/Plan: Assessment: 77 yo delightful female comes in today after spouse was driving w/ her and she became unresponsive for 10-15 sec, sweaty, nauseated, no cp. She has a h/o intermittent a fib on Bystolic and Xarelto, puly htn, dvt/PE after ankle fx, hypothyroidism, OA, reports she had a recent heart scan which was minimally positive. In the ER her labs were found to show +BNP of 3400, no prior data points for this, cxr w/ minimal evidence of CHF, no infiltrates/effusion, ekg w / a fib, trop x 1 neg, d dimer ok (and on anticoag). Pt admitted for further w/ u of syncopal episode w/ differential to include arrhythmia induced, acs, unlikely postural/orthostatic as she was riding in car, not likely infectious as she has been in usual state of health w/o any recent illnesses, no h/o sz disorder/neuro etiology. -Admit to tele, serial trop, echo, cont Xarelto, will consult cardiology as this is now a second event (first 3 years ago) - seems to be going in and out of afib and she is not aware she is in it currently - ? cardioversion vs rhythm med consideration, assess what she does on tele, ? longer term eval of rhythm vs ? pacer, will consult cardiology and call Dr Felicia Louis. -Hypothryoid - will check TSH and make sure not hyperthyroid and contributing -HTN - bp elev currently - usually well controlled on Bystolic 5 mg qhs (and rate control) - spoke w/ Dr Louis - will hold bb to better assess rhythm/ sinus node/pause/rate - will place on norvasc, has h/o cough on gisela i. -h/o vertigo/possible Meniere's/tinnitus - stable, undergoing outpt w/u -[place] - wears cpap nightly -h/o DVT/PE after ankle fx - on Xarelto see above. -dvt proph- Xarelto Plan: 04/27/18 14:13 04/28/18 10:46 77 yo female w/ 10-15 sec unresponsiveness in setting of known afib w/ bb on board, h/o puly htn, h/o dvt/pe, w/ initial diaphoresis/sob -No concerning events on tele overnight - w/ bb held she did not become tachycardic, dw cards will cont to hold bb and cont on amlodipine but will increase to 5 mg as needs better bp control, ? if from celia/pause even 2/2 a fib w/ bb as she doesn't appear to have rate control tachy issues w her a fib. She will be scheduled for a link implant with cardiology, w/ consideration to nuc/gabbie scan for risk stratification. Appreciate cardiology input and assistance by Dr Felicia Louis. She will call tomorrow to arrange this and will have f/u with Anson Caro in clinic tomorrow afternoon (PCP) as well for bp check and f/u. Trop x 3 neg, EKG w/o st changes, has remained in a fib and not intermittent. Cont on Xarelto. -puly htn - on break from sildenafil, cardiology rec not restarting currently. -[place]- on cpap, cont nightly -htn - changed to amlodipine (see above), increased to 5 mg, called in rx to [facility], [place] [address] -hypothryoid -tsh appropriate -elev K - recheck ok -h/o dvt/pe - on Xarelto -dispo - home today, f/u w/ PCP tomorrow, call cardiology tomorrow to schedule f /u/Link. Subjective: Doing well, wants to go home, no further events Objective: Vital Signs Temp Pulse Resp BP Pulse Ox 35.8 C L 65 20 148/90 H 92 04/28/18 07:29 04/28/18 07:29 04/28/18 07:29 04/28/18 07:29 04/28/18 07:29 Laboratory Results 04/28/18 04:58 04/28/18 08:24 04/27/18 04/28/18 04/29/18 05:59 05:59 05:59 Intake Total 1400 Balance 1400 PT 15.9 SEC (12.0-15.0) H 04/27/18 11:00 INR 1.25 (0.83-1.16) H 04/27/18 11:00 Gen: pleasant, A&O Heent: eomi Neck: soft supple Respy: cta b CV: irreg irreg Abd: soft nt nd Ext: no edema, good dorsalis pedis pulses Neuro: A&O x 4, appropriate - Pending Discharge Pending Discharge Within 24 Hours: Yes Pending Discharge Date: 04/29/18 Pending Discharge Time: 11:00 ICD10 Worksheet Patient Problems: Problems Problem Status Onset Pulmonary embolism and infarction Acute Atrial fibrillation and flutter Acute Atrial fibrillation Acute Congestive heart failure Acute Syncope Acute
--- NOTE | 2018-04-28 11:33 | GDS ---
SUMMARY: Patient is a pleasant 77-year-old female who came in after a 10-15 second episode of unresp onsiveness in the passenger seat of a car while she and her were traveling to an event. At t hat time, she was diaphoretic, anxious, and nauseated. They called and were sent to the ER for evalu ation. In the ER, she had an EKG showing atrial fibrillation, no ST changes. Had a negative troponin. Labs essentially were all normal. No neurologic deficits. Chest x-ray with minimal CHF. BNP elevated a t 3400. She was admitted for monitoring and further evaluation. Overnight, she had serial troponins, which w ere all negative. She was placed on telemetry with no eventful occurrences. She had an echo perform ed, which showed normal LV systolic function with an EF of 55-60, moderately dilated left atrium, sev erely dilated right atrium, mvvnbstl-nw-slytsw tricuspid valve regurgitation with pulmonary pressure moderately increased with right ventricular systolic pressure at 60 mmHg. Card[address] was consulted. Dr. Felicia Louis saw the patient as the patient has had 1 or 2 similar event s over a several year time span, which were concerning for a possible arrhythmogenic source. Dr. Corky santos wanted her beta-constance held and her monitored overnight on amlodipine so that her rate could be wa tched to see if she became tachycardic or Juan. She had no tachycardia without the beta-constance and remained in rate in 60s and 70s with the thought that perhaps with her prior Bystolic on board, this was interfering with her rate, possibly pause in conduction in conjunction with her atrial fibrillat ion and SA node communication. The plan will be to have her as an outpatient call tomorrow to schedu le a LINQ implant, [employer] for long-term ambulatory rhythm data for 3 years. She will call to sched jose de jesus this and will need to hold her Xarelto per Cardiology only 24 hours prior to the procedure. Card iology also recommending that she consider outpatient Lexiscan nuclear stress test for further risk s tratification. Additionally, she did have evidence of orthostasis on exam; however, this was checked after she had b een given Lasix, but upon initial evaluation, her BUN was on the high normal side. Discussed with he r importance of keeping well hydrated and she and her family are in agreement to work on this. FOLLOWUP: She will follow up with her PCP, Dr. Caro, tomorrow at 3:15. DISCHARGE MEDICATIONS: Her prescription for Norvasc 5 mg was called in to [facility]. S he will not take her Bystolic. The rest of her medications will remain the same, including trazodone 50 mg 1/2 q.h.s. p.r.n., Xarelto 20 mg p.o. q.h.s., fish oil 1000 mg p.o. daily, multivitamin 1 p.o. daily, magnesium 400 mg 1 p.o. daily, Synthroid 75 mcg 1 p.o. daily, eye drops, fluorometholone 1 dr op each eye twice daily, vitamin D 2000 international units daily, Refresh eyedrops 1 drop each eye b .i.d. p.r.n., vitamin C 1000 mg p.o. daily, and now her new medication amlodipine 5 mg p.o. daily as above. /[id number]/MODL
--- NOTE | 2018-04-29 09:06 | CPEKG ---
Test Reason : OPEN Blood Pressure : / mmHG Vent. Rate : 072 BPM Atrial Rate : 000 BPM P-R Int : 179 ms QRS Dur : 080 ms QT Int : 354 ms P-R-T Axes : 000 032 180 degrees QTc Int : 388 ms Atrial fibrillation Probable LVH with secondary repol abnrm Compared with previous tracing dated 04/27/2018 repol abnl improved Confirmed by Felicia Louis ([id number]) on 04/29/2018 9:05:47 AM Referred By: Confirmed By:Felicia Louis
== END 2018-04-28 11:20 | disposition home or self-care (01) ==
LOC: INTOOBSV 12:05 → F2W 13:00
PROVIDERS: ADMIT Internal Medicine; ATTEND Internal Medicine
DX: R55 Syncope and collapse (principal); I48.2 Chronic atrial fibrillation; E86.9 Volume depletion, unspecified; I10 Essential (primary) hypertension; E78.5 Hyperlipidemia, unspecified; E03.9 Hypothyroidism, unspecified; G47.33 Obstructive sleep apnea (adult) (pediatric); M81.0 Age-related osteoporosis without current pathological fracture; Z86.711 Personal history of pulmonary embolism; Z86.718 Personal history of other venous thrombosis and embolism; Z79.01 Long term (current) use of anticoagulants
CPT/HCPCS: 71045; 93005; 93306; 96374; 96375; 99285; G0378; J1940; J2405; 84484-PO

== ENCOUNTER 2018-05-06 10:21 | Day surgery (SDC) | payer OTHER ==
[2018-05-06] MEDS ORDERED: LIDOCAINE 1% 300 MG/30 ML SDV SC ONE (10:24)
--- NOTE | 2018-05-06 10:45 | PDHPUP ---
History & Physical Update H&P update statement: This history and physical update is based on an assessment of the patient which was completed after admission or registration (within 24 hours), but prior to the surgery/procedure. H&P update: H&P reviewed & patient examined, no change in patient's condition since H&P completed (Please see hospital consult dated 04/27/2018)
--- NOTE | 2018-05-06 12:11 | CPIP ---
DATE OF PROCEDURE: 05/06/2018 PROCEDURE: Confirm implant. INDICATIONS: Syncope. Evaluate for arrhythmic etiology. COMPLICATIONS: None. DESCRIPTION OF PROCEDURE: Informed consent was obtained. The patient was prepped and draped in ster ile fashion. 1% lidocaine was used for local anesthesia over the left parasternal region. Using sta ndard technique, a [employer] confirm monitor was implanted. The incision was closed with 2 ashley. Sterile dressing applied. CONCLUSIONS: 1. Implantation of [employer] confirmed. Serial #[id number]. 2. Follow up in our office in 1 week for device check and staple removal. 3. At the time of implant, R-wave voltage was 1.03 mV. Patient currently in stable condition. /[id number]/MODL
== END 2018-05-06 11:40 | disposition home or self-care (01) ==
LOC: FCATH 10:21
PROVIDERS: ATTEND Internal Medicine Cardiovascular Disease
PROC: 0JH632Z Insertion of Monitoring Device into Chest Subcutaneous Tissue and Fascia, Percutaneous Approach (ICD-10-PCS; principal; 2018-05-06)
DX: R55 Syncope and collapse (principal)
CPT/HCPCS: C1764

== ENCOUNTER → 2018-07-02 | Outpatient (CLI) | payer OTHER | LOC: FIMAGING 11:55 | PROVIDERS: ATTEND Internal Medicine | DX: Z12.31 Encounter for screening mammogram for malignant neoplasm of breast (principal) ==